=== PATIENT | female | born 1990 | race Caucasian/White ===

== ENCOUNTER 2018-09-13 17:54 | Emergency (ER) | payer OTHER ==
[2018-09-13] MEDS ORDERED: KETOROLAC 30 MG/1 ML SDV IM ONE (19:26)
[2018-09-13] MEDS ORDERED: CYCLOBENZAPRINE 10 MG TAB PO ONE (19:26)
--- NOTE | 2018-09-13 19:44 | EDPHY ---
H & P Time Seen by Provider: 09/13/18 18:47 HPI/ROS: HPI Right-sided neck and shoulder pain. 28-year-old female by private vehicle. This patient reports that she woke up 4 days ago with pain to the right posterior lateral aspect of her neck radiating down through her mid trapezius body just above her shoulder blade. There is no history of trauma. She does have a history of a seizure disorder but does not think she had a seizure. He has not had this pain before. She denies any loss of sensation or weakness in her extremities. No headache. ROS: Constitutional: No fever, no chills. No weakness. Eyes: No discharge. No changes in vision. ENT: No sore throat. No nasal congestion or rhinorrhea. Respiratory: No cough. No shortness of breath. Cardiac: No chest pain, no palpitations. Gastrointestinal: No abdominal pain, no vomiting, no diarrhea. Musculoskeletal: No back pain. As above. No myalgias or arthralgias. Skin: No rashes. Neurological: No headache. No focal weakness or altered sensation. Past medical history: Seizure disorder. Social history: Nonsmoker. Her boyfriend gave her a ride here. She denies alcohol. Physical Exam: General Appearance: Alert, she appears uncomfortable but not in distress. This patient is responding to questions appropriately and in full sentences. This patient appears well-hydrated and well-nourished. No voice changes. Eyes: Pupils equal and round no pallor or injection. No lid edema, erythema or injection. Neurological: Motor sensory function is grossly intact. Cranial nerves are normal. Gait is normal. Skin: Warm and dry, no rashes. Musculoskeletal: Neck is supple, she has vague tenderness and muscle tightness involving the right posterior lateral paraspinal tissues extending down into the mid trapezius body. 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 She does not have any cervical, submandibular, submental lymphadenopathy. Soft tissues of the anterior lateral neck or soft. No masses appreciated. No stridor on auscultation of her neck. No midline cervical, thoracic tenderness on palpation. Extremities are symmetrical. All joints range without pain or impingement. Psychiatric: No agitation. No depression. Database: EKG: Imaging: Cervical spine x-ray series: Muscle spasm. Otherwise the soft tissues are unremarkable. The bony aspects are of normal alignment. No evidence of fracture, subluxation, dislocation. Interpreted by me. Procedures: Emergency department course: Triage vital signs reviewed. The patient's presentation is consistent with a spasmodic torticollis. She was given intramuscular Toradol. She has no contraindications to NSAIDs. No history of renal dysfunction or peptic ulcer disease. She was given 10 mg of oral Flexeril. Cervical spine x-rays to be obtained. 8:15 p.m., the patient was re-evaluated, she is resting comfortably at this time. She is feeling better. Repeat neurologic Assessment is nonfocal. She does feel comfortable going home at this time. I discussed results of her x- rays with her. I will give her a take-home pack of Vicodin. I will also prescribe her Flexeril. I discussed follow-up through her primary care physician in 2-3 days for re-evaluation. She is unable to follow up with her primary care physician and she is still having discomfort she is to return to the emergency department for re-evaluation. Immediate return to emergency department precautions discussed with her in detail. All of her questions were answered. She was discharged from the emergency department in good condition. Differential Diagnosis: The differential diagnosis on this patient includes but is not limited to spasmodic torticollis. Retropharyngeal abscess, peritonsillar abscess, vertebral artery dissection, carotid artery dissection, acute traumatic injury to the cervical spine unlikely. This represents a partial list of diagnoses considered. These considerations are based on history, physical exam, past history, reassessment and diagnostic testing. Smoking Status: Current every day smoker Constitutional: Initial Vital Signs Temperature (C) 37.6 C 09/13/18 18:05 Heart Rate 92 09/13/18 18:05 Respiratory Rate 16 09/13/18 18:05 Blood Pressure 130/84 H 09/13/18 18:05 O2 Sat (%) 98 09/13/18 18:05 O2 Delivery Mode Room Air Allergies/Adverse Reactions: No Known Allergies Allergy (Unverified 09/13/18 18:04) Home Medications: Medication Instructions Recorded Bcp 09/13/18 Carbamazepine ER 09/13/18 Cyclobenzaprine [Flexeril 10 MG 10 mg PO TID #9 tab 09/13/18 (*)] Ibuprofen 09/13/18 Topamax 03/17/19 Tylenol 09/13/18 Medical Decision Making - Data Points Medications Given: Discontinued Medications Hydrocodone Bitart/Acetaminophen ([place] 5/325mg Prepack#6) 1 btl TAKEHOME EDNOW ONE Stop: 09/13/18 20:21 Last Admin: 09/13/18 20:38 Dose: 1 btl Cyclobenzaprine HCl (Flexeril) 10 mg PO EDNOW ONE Stop: 09/13/18 19:27 Last Admin: 09/13/18 19:39 Dose: 10 mg Ketorolac Tromethamine (Toradol) 60 mg IM EDNOW ONE Stop: 09/13/18 19:27 Last Admin: 09/13/18 19:40 Dose: 60 mg Departure - Departure Disposition: Home, Routine, Self-Care Clinical Impression: Spasmodic torticollis Condition: Good Instructions: Hydrocodone/Acetaminophen (By mouth), Spasmodic Torticollis (ED) Additional Instructions: Read and follow provided instructions. Follow-up with your primary care physician in 2-3 days for re-evaluation as discussed. You can start taking ibuprofen tomorrow afternoon. Ibuprofen dosin mg every 6 hours with meals for the next 3 days only. Take only as needed for pain. Narcotic pain medication: 1-2 every 4-6 hours as needed for pain. Take only as needed. Take muscle relaxer as needed for the next [address] while taking muscle relaxer or narcotic pain medication. Return to the emergency department immediately for worsening pain, loss of sensation or weakness in your extremities or other serious concerns. Referrals: ADITYA VILLAVICENCIO [Primary Care Provider] - As per Instructions Stand Alone Forms: Work Excuse Prescriptions: Cyclobenzaprine [Flexeril 10 MG (*)] 10 mg PO TID #9 tab
[2018-09-13] MEDS ORDERED: HYDROCOD/APAP 5/325 PREPACK#6 BTL TAKEHOME ONE (20:20)
[2018-09-13 20:42] VITALS: BP 109/75
== END 2018-09-13 20:42 | disposition home or self-care (01) ==
DX: G24.3 Spasmodic torticollis (principal)
CPT/HCPCS: J1885